=== PATIENT | female | born 2000 | race Caucasian/White ===

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

== ENCOUNTER 2021-08-16 00:26 | Emergency (ER) | payer MEDICAID ==
[~2021-08-16] VITALS: Ht 157.5 cm; Wt 77.1 kg
[2021-08-16 00:50] VITALS: BP_SYST 106
--- NOTE | 2021-08-16 00:55 | NUR ---
Patient to ER bed 7 to gown for evaluation. Side rails up. Report given to self.
--- NOTE | 2021-08-16 01:20 | NUR ---
Urine specimen collected and analyzed in lab. Results pending and then to be given to VAISHNAVI SZYMANSKI. Urine HCG done, results Negative GTIN: [id number] LOT: [id number] EXP: 2023-01-27
--- NOTE | 2021-08-16 01:25 | NUR ---
# 20 gauge angiocath placed to LAC. Use of asceptic technique. Opsite placed over site. Blood return noted. Blood for lab drawn from site. Flushed with 10 cc of normal saline. No evidence of infiltration noted. Patient tolerated well. Medicated per MD orders w/ 0.9% NS, ivf infusing with no s/s of infiltration at this time. Will cont to monitor and observe for any adverse reaction.
[2021-08-16 01:39] LABS: BILIRUBIN,URINE 1+ (NEGATIVE); BLOOD, URINE 3+ (NEGATIVE); COLOR,URINE YELLOW (YELLOW); GLUCOSE,URINE NEGATIVE (NEGATIVE); KETONES,URINE 3+ (NEGATIVE); LEUKOCYTE ESTERASE ,URINE 1+ (NEGATIVE); NITRITE, URINE NEGATIVE (NEGATIVE); PH,URINE 5.5 (5.0-8.0); PROTEIN URINE NEGATIVE (NEGATIVE); UROBILINOGEN,URINE 0.2 (0.2-1.0)
[2021-08-16 01:45] LABS: CLARITY/URINE CLOUDY (CLEAR)
[2021-08-16] MEDS ORDERED: MORPHINE 4 MG INJ. 4 MG/ML VIAL IVP ONE (01:45)
[2021-08-16] MEDS ORDERED: NACL 0.9% 1,000 ML IV ONE (01:45)
[2021-08-16] MEDS ORDERED: ONDANSETRON HCL 4 MG/2 ML VIAL IVP ONE (01:45)
--- NOTE | 2021-08-16 01:45 | NUR ---
Medicated W/ morphine 4mg and zofran 4mg ivp per MD orders. IVF infusing with no s/s of infiltration at this time. Will cont to monitor and observe for any adverse reaction. Bed to low position sr up, continue to monitor
[2021-08-16 02:02] LABS: BACTERIA,URINE FEW /HPF (None Seen)
[2021-08-16 02:23] LABS: BASOPHILS % (AUTO) 0.3 % (0.0-2.0); EOSINOPHILS # (AUTO) 0.1 K/uL (0.0-0.4); EOSINOPHILS % (AUTO) 0.6 % (0.0-4.0); HEMATOCRIT 42.1 % (36-48); HEMOGLOBIN 14.2 g/dL (12.0-16.0); LYMPHOCYTES # (AUTO) 2.7 K/uL (1.0-5.5); LYMPHOCYTES % (AUTO) 22.8 % (20.5-51.5); MEAN CORPUSCULAR HEMOGLOBIN 28 pg (27-31); MEAN CORPUSCULAR HGB CONC 34 % (32-36); MEAN CORPUSCULAR VOLUME 83 fL (79.0-98.0); MONOCYTES # (AUTO) 0.7 K/uL (0.0-1.0); MONOCYTES % (AUTO) 5.9 % (1.7-9.3); NEUTROPHILS # (AUTO) 8.4 K/uL (1.8-7.7); NEUTROPHILS % (AUTO) 70.4 % (40.0-70.0); PLATELET COUNT (AUTO) 328 K/uL (130-430); RED BLOOD CELL COUNT(AUTO) 5.09 MIL/uL (4.2-6.2); WHITE BLOOD COUNT (AUTO) 11.9 K/uL (4.8-10.8)
[2021-08-16 02:29] LABS: CALCIUM 9.4 mg/dL (8.4-11.0); CREATININE 0.97 mg/dL (0.55-1.30); POTASSIUM 3.2 mmol/L (3.5-5.1)
--- NOTE | 2021-08-16 02:38 | NUR ---
Patient resting quietly. No acute distress noted. Vital signs within normal range. no adverse reaction noted to medications. continue to monitor.
[2021-08-16 02:40] LABS: ALBUMIN 4.3 g/dL (3.4-4.8); TOTAL BILIRUBIN 1.8 mg/dL (0.0-1.0)
[2021-08-16] MEDS ORDERED: ONDA-8 TL (02:58)
--- NOTE | 2021-08-16 03:03 | NUR ---
fluid challenge w/ 120ml of apple juice (tolerated).
[2021-08-16 03:21] VITALS: BP_SYST 105
--- NOTE | 2021-08-16 03:21 | NUR ---
Patient given written and verbal discharge instructions and verbalizes understanding. ER MD discussed with patient the results and treatment provided. Patient in stable condition. ID arm band removed. IV catheter removed intact and dressing applied, no active bleeding. Rx of zofran odt given. Patient educated on pain management and to follow up with PMD. Pain Scale 0. Opportunity for questions provided and answered. Medication side effect fact sheet provided.
== END 2021-08-16 03:21 | disposition home or self-care (01) ==
LOC: SED 00:26
DX: R10.10 Upper abdominal pain, unspecified (principal); R11.10 Vomiting, unspecified; R19.7 Diarrhea, unspecified; J45.909 Unspecified asthma, uncomplicated; Z79.899 Other long term (current) drug therapy
CPT/HCPCS: 36415; 80053; 81000; 83690; 84702; 85025; 87086; 96361; 96374; 96375; 99284; J2270; J2405; J7030

== ENCOUNTER 2021-08-26 19:18 | Emergency (ER) | payer MEDICAID ==
[~2021-08-26] VITALS: Ht 157.5 cm; Wt 77.1 kg
[~2021-08-26 19:18] MED LIST: ONDA-8 TL
[2021-08-26 19:47] VITALS: BP_SYST 121
[2021-08-26] MEDS ORDERED: ONDANSETRON 4 MG ODT TAB PO ONE (20:00)
[2021-08-26] MEDS ORDERED: LOPE2CAP PO (20:24)
[2021-08-26] MEDS ORDERED: ONDA4TAB5 PO (20:24)
[2021-08-26 21:18] VITALS: BP_SYST 121
== END 2021-08-26 21:18 | disposition home or self-care (01) ==
LOC: SED 19:18
DX: R11.2 Nausea with vomiting, unspecified (principal); J45.909 Unspecified asthma, uncomplicated; Z79.899 Other long term (current) drug therapy
CPT/HCPCS: 81002; 81025; 86710; 99283; Q0162; 36415